=== PATIENT | male | born 1950 | race Caucasian/White ===

== ENCOUNTER 2021-12-23 13:26 | Inpatient (IN) | payer OTHER ==
[~2021-12-23] VITALS: Ht 185.4 cm; Wt 106.6 kg
[2021-12-23] MEDS ORDERED: GLYBURIDE5 MG PO (16:45)
[2021-12-23] MEDS ORDERED: POTASSIUM CHLO10 ME2 PO (16:46)
[2021-12-23] MEDS ORDERED: FLOMAX 0.4 MG0.4 MG PO (16:46)
[2021-12-23] MEDS ORDERED: TORSEMIDE20 MG PO (16:47)
[2021-12-23] MEDS ORDERED: LISINOPRIL20 MG PO (16:48)
[2021-12-23] MEDS ORDERED: METOPROLOL TART50 MG PO (16:48)
[2021-12-23] MEDS ORDERED: ATORVASTATIN CA40 MG PO (16:49)
[2021-12-23] MEDS ORDERED: CLOPIDOGREL75 MG PO (16:50)
[2021-12-23] MEDS ORDERED: DIGOXIN125 MCG PO (16:50)
[2021-12-23] MEDS ORDERED: HYDROCHLOROTHIA25 MG PO (16:56)
[2021-12-23] MEDS ORDERED: HYDROXYZINE HCL25 MG PO (16:56)
[2021-12-23] MEDS ORDERED: METFORMIN HCL500 MG PO (16:57)
[2021-12-23] MEDS ORDERED: BUMETANIDE1 MG PO (16:58)
[2021-12-23] MEDS ORDERED: DOXAZOSIN MESYLA8 MG PO (16:59)
[2021-12-23] MEDS ORDERED: ASPIRIN EC81 MG PO (16:59)
[2021-12-23 23:53] LABS: HEMOGLOBIN 8.9 gm/dl (14.0-17.5); RED BLOOD COUNT 3.38 M/UL (4.20-5.50)
--- NOTE | 2021-12-24 01:45 | NUR ---
CALLED HOUSE AT 2311 TO NOTIFY OF A BED TRANSFER TO PCU
[2021-12-24 07:02] LABS: RED BLOOD COUNT 3.43 M/UL (4.20-5.50); WHITE BLOOD COUNT 5.5 K/UL (4.5-11.0)
[2021-12-24 07:40] LABS: BUN/CREATININE RATIO 38 (0-10)
--- NOTE | 2021-12-24 10:27 | NUR ---
REPORT GIVEN TO SHAY RN AND PT TOOK TO ROOM [id number]
[2021-12-25 05:17] LABS: RED BLOOD COUNT 3.03 M/UL (4.20-5.50)
[2021-12-25 05:31] LABS: BUN/CREATININE RATIO 38 (0-10)
[2021-12-26 04:16] LABS: HEMOGLOBIN 8.1 gm/dl (14.0-17.5); RED BLOOD COUNT 3.09 M/UL (4.20-5.50); WHITE BLOOD COUNT 6.2 K/UL (4.5-11.0)
[2021-12-26 04:35] LABS: BUN/CREATININE RATIO 33 (0-10)
[2021-12-27 03:10] LABS: HEMOGLOBIN 8.1 gm/dl (14.0-17.5); RED BLOOD COUNT 3.08 M/UL (4.20-5.50); WHITE BLOOD COUNT 6.2 K/UL (4.5-11.0)
[2021-12-27 03:50] LABS: BUN/CREATININE RATIO 27 (0-10)
[2021-12-28 03:23] LABS: BUN/CREATININE RATIO 26 (0-10)
[2021-12-29 01:58] LABS: HEMOGLOBIN 8.6 gm/dl (14.0-17.5); RED BLOOD COUNT 3.28 M/UL (4.20-5.50); WHITE BLOOD COUNT 4.7 K/UL (4.5-11.0)
[2021-12-29 02:23] LABS: BUN/CREATININE RATIO 31 (0-10)
[2021-12-30 02:20] LABS: BUN/CREATININE RATIO 30 (0-10)
[2021-12-30] MEDS ORDERED: DIAMOX 250 MG250 MG PO (10:48)
[2021-12-30] MEDS ORDERED: FUROSEMIDE40 MG PO (10:48)
[2021-12-31 02:25] LABS: HEMOGLOBIN 8.1 gm/dl (14.0-17.5); RED BLOOD COUNT 3.08 M/UL (4.20-5.50); WHITE BLOOD COUNT 5.1 K/UL (4.5-11.0)
[2021-12-31 02:46] LABS: BUN/CREATININE RATIO 35 (0-10)
[2022-01-01 08:34] LABS: BUN/CREATININE RATIO 37 (0-10)
[2022-01-01 08:40] LABS: HEMOGLOBIN 8.3 gm/dl (14.0-17.5); RED BLOOD COUNT 2.83 M/UL (4.20-5.50)
== END 2022-01-01 14:43 | disposition swing bed (61) | DRG 291 ==
LOC: MED SURG 4 13:26 → CCU 15:14 → PROG CARE 15:14 → MED SURG 4 15:14 → PROG CARE 12-24 00:58 → CCU 12-24 10:32 → PROG CARE 12-26 14:11
PROVIDERS: Family Medicine; Internal Medicine; Internal Medicine Pulmonary Disease; Physician Assistant; ADMIT Internal Medicine Infectious Disease
PROC: B24BZZZ Ultrasonography of Heart with Aorta (ICD-10-PCS; principal; 2021-12-24)
DX: I13.0 Hypertensive heart and chronic kidney disease with heart failure and stage 1 through stage 4 chronic kidney disease, or unspecified chronic kidney disease (principal); I50.23 Acute on chronic systolic (congestive) heart failure; J96.21 Acute and chronic respiratory failure with hypoxia; J96.22 Acute and chronic respiratory failure with hypercapnia; I48.20 Chronic atrial fibrillation, unspecified; E87.1 Hypo-osmolality and hyponatremia; I25.10 Atherosclerotic heart disease of native coronary artery without angina pectoris; J44.9 Chronic obstructive pulmonary disease, unspecified; Z20.822 Contact with and (suspected) exposure to COVID-19; I27.20 Pulmonary hypertension, unspecified; D63.1 Anemia in chronic kidney disease; N18.30 Chronic kidney disease, stage 3 unspecified; I25.5 Ischemic cardiomyopathy; E11.22 Type 2 diabetes mellitus with diabetic chronic kidney disease; G30.9 Alzheimer's disease, unspecified; I45.10 Unspecified right bundle-branch block; L89.152 Pressure ulcer of sacral region, stage 2; D52.9 Folate deficiency anemia, unspecified; R53.81 Other malaise; E66.9 Obesity, unspecified; N40.0 Benign prostatic hyperplasia without lower urinary tract symptoms; I35.0 Nonrheumatic aortic (valve) stenosis; D50.9 Iron deficiency anemia, unspecified; I36.1 Nonrheumatic tricuspid (valve) insufficiency; E87.6 Hypokalemia; E11.65 Type 2 diabetes mellitus with hyperglycemia; I25.2 Old myocardial infarction; Z68.30 Body mass index [BMI] 30.0-30.9, adult; Z95.1 Presence of aortocoronary bypass graft; Z80.0 Family history of malignant neoplasm of digestive organs; Z98.890 Other specified postprocedural states; Z79.82 Long term (current) use of aspirin; Z79.899 Other long term (current) drug therapy; Z87.891 Personal history of nicotine dependence; Z99.81 Dependence on supplemental oxygen; Z79.4 Long term (current) use of insulin; Z79.01 Long term (current) use of anticoagulants; Z86.711 Personal history of pulmonary embolism
CPT/HCPCS: ECHO; 36415; 36600; 71045; 71046; 80048; 80053; 80061; 80162; 82550; 82553; 82607; 82728; 82746; 82803; 82962; 83036; 83540; 83550; 83690; 83735; 83880; 84100; 84132; 84443; 84484; 85025; 85027; 85610; 85730; 86140; 93005; 93306; 94640; 94660; 94664; 94760; 97110; 97110-GP-CQ; 97162; 97166; 97530; 97530-GP-CQ; 97535; A6212; J1120; J1205; J1644; J1650; J1756; J1940; U0002